=== PATIENT | male | born 1950 | race Caucasian/White ===

== ENCOUNTER → 2018-07-20 | Outpatient (CLI) | payer OTHER ==
--- NOTE | 2018-07-20 11:43 | 2DMMODE ---
[facility] [place] [address] 2 D/M-MODE ECHOCARDIOGRAM Name: FLORENCIAALVAROTRUMAN Room #: REG [facility]#: [id number] Admission: 07/20/18 Attend Phys: Francesco Zhu MD Discharge: Date of : 50 Date of Service: 07/20/18 1143 Report #: [id number] THIS REPORT FOR: //name// APPROVED REPORT Study performed: 07/20/2018 11:02:50 EXAM: Comprehensive 2D, Doppler, and color-flow Echocardiogram Patient Location: Out-Patient Status: routine BSA: 2.46 HR: 94 bpm BP: 138/88 mmHg Rhythm: Atrial Fibrillation Other Information Study Quality: Adequate Indications Atrial Fibrillation Hx: HTN, HLP 2D Dimensions RVDd: 42.78 mm IVSd: 11.43 (7-11mm) LVOT Diam: 23.35 (18-24mm) LVDd: 49.35 mm PWd: 10.72 (7-11mm) Ascending Ao: 42.33 (22-36mm) LVDs: 33.46 (25-40mm) Aortic Root: 38.43 mm Volumes Left Atrial Volume (Systole) Single Plane 4CH: 84.46 mL Single Plane 2CH: 101.37 mL LA ESV Index: 41.00 mL/m2 Aortic Valve AoV Peak Tristin.: 1.03 m/s AO Peak Gr.: 4.27 mmHg LVOT Max P.05 mmHg LVOT Max V: 0.71 m/s ALBERTO Vmax: 2.95 cm2 Mitral Valve MV Decel. Time: 159.92 ms MV E Max Tristin.: 0.80 m/s [facility] [address] [place] [address] 2 D/M-MODE ECHOCARDIOGRAM Name: TRUMAN ESQUIVEL Room #: REG [facility]#: [id number] Admission: 07/20/18 Attend Phys: Francesco Zhu MD Discharge: Date of : 50 Date of Service: 07/20/18 1143 Report #: [id number] Pulmonary Valve PV Peak Tristin.: 0.83 m/s PV Peak Gr.: 2.80 mmHg Tricuspid Valve TR Peak Tristin.: 2.35 m/s RAP Estimate: 5.00 mmHg TR Peak Gr.: 22.52 mmHg PA Pressure: 28.00 mmHg Left Ventricle The left ventricle is normal size. Mild basal septal hypertrophy is present. Left ventricular systolic function is borderline. LVEF is 50%. This study is not technically sufficient to allow evaluation of the LV diastolic function due to atrial fibrillation. Right Ventricle The right ventricle is normal size. The right ventricular systolic function is normal. Atria Left atrium is dilated. Right atrium is dilated. Aortic Valve The aortic valve is normal in structure. Mild aortic regurgitation. There is no aortic valvular stenosis. Mitral Valve The mitral valve is normal in structure. Trace mitral regurgitation. Tricuspid Valve The tricuspid valve is normal in structure. Mild tricuspid regurgitation. Estimated PAP is 28mmHg. Pulmonic Valve The pulmonary valve is normal in structure. Trace pulmonic regurgitation. Great Vessels Aortic root measures at the upper limits of normal. Ascending aorta is dilated at 4.2cm. IVC is normal in size and collapses >50% with inspiration. Pericardium There is no pericardial effusion. [facility] [place] [address] 2 D/M-MODE ECHOCARDIOGRAM Name: TRUMAN ESQUIVEL Room #: REG [facility].#: [id number] Admission: 07/20/18 Attend Phys: Francesco Zhu MD Discharge: Date of : 50 Date of Service: 07/20/18 1143 Report #: [id number] <Conclusion> The left ventricle is normal size. Left ventricular systolic function is borderline. The right ventricle is normal size. Left atrium is dilated. Right atrium is dilated. Mild aortic regurgitation. Trace mitral regurgitation. Mild tricuspid regurgitation. Estimated PAP is 28mmHg. <ELECTRONICALLY SIGNED> By: Francesco Zhu MD 07/20/18 1143 42 114 Francesco Zhu MD /INF
== END ==
LOC: NUC 08:45
DX: I08.2 Rheumatic disorders of both aortic and tricuspid valves (principal); I48.91 Unspecified atrial fibrillation

== ENCOUNTER → 2018-08-11 | Outpatient (CLI) | payer OTHER ==
[~2018-08-11] VITALS: Ht 188 cm; Wt 121.6 kg
[~2018-08-11] MED LIST: AVAPRO300 MG PO; CARDIZEM CD240 MG PO; CARVEDILOL12.5 MG PO; FLECAINIDE ACET50 M1 PO; HYDROCHLOROTHIA25 M2 PO; LIPITOR 20 MG T20 M1 PO; OMEPRAZOLE 20 M20 M1 PO; OXYBUTYNIN 5 MG5 M2 PO; PRADAXA150 MG PO; XANAX 0.5 MG0.5 MG PO; ZYLOPRIM300 MG PO
--- NOTE | ~2018-08-11 | P ---
[facility] [place] [address] PROCEDURE REPORT Name: TRUMAN ESQUIVEL Room #: REG Karine Gregory.#: [id number] Admission: 08/11/18 Attend Phys: Rafita Brice MD Discharge: Date of : 50 Report #: [id number] THIS REPORT FOR: //name// [facility] DATE OF SERVICE: 08/11/2018 PREOPERATIVE DIAGNOSIS: Atrial fibrillation. POSTOPERATIVE DIAGNOSIS: Atrial fibrillation. DESCRIPTION OF PROCEDURE: The patient underwent informed consent. The patient was then sedated by the Anesthesiology Service. The patient then underwent a 200 joule synchronized cardioversion with mandaen of sinus rhythm. There were no procedural complications. CONCLUSIONS: Successful DC cardioversion with mandaen of sinus rhythm. By: [id number] Rafita Brice MD /nt
--- NOTE | ~2018-08-11 | EKG ---
[address] [address] ELECTROCARDIOGRAM REPORT Name: TRUMAN ESQUIVEL [id number] Admission: 08/11/18 Attend Phys: Rafita Brice MD Discharge: Date of : 50 Report #: [id number] THIS REPORT FOR: //name// [facility] Test Date: 2018-08-11 Test Time: 13:14:45 Pat Name: TRUMAN ESQUIVEL Department: Room: Gender: M Balloon Pilot: Antolin JUDGE : 1950 Requested By: Rafita Brice Order Number: [id number] MD: Measurements Intervals [place] Rate: 74 P: 56 ID: 215 QRS: 80 QRSD: 113 T: 32 QT: 434 QTc: 482 Interpretive Statements Sinus rhythm Borderline prolonged ID interval Borderline intraventricular conduction delay Borderline prolonged QT interval No previous ECG available for comparison [email or web address] By: 1314 1314 Epiphany MD Blade /ANNIE
[2018-08-11 11:00] VITALS: BP 141/60
[2018-08-11 11:04] LABS: ABSOLUTE NEUTROPHILS 4.8 thou/uL (1.4-8.2); BASOPHILS 0.5 % (0.0-2.0); EOSINOPHILS 1.8 % (0.0-3.0); HEMATOCRIT 46.9 % (42.0-52.0); HEMOGLOBIN 16.2 gm/dL (14.0-18.0); LYMPHOCYTES 20.4 % (24.0-44.0); MCH 31.8 pg (26.0-34.0); MCHC 34.5 g/dL (28.0-37.0); MCV 92.1 fL (80.0-100.0); MONOCYTES 9.1 % (1.0-8.0); PLATELET COUNT 205 thou/uL (150-400); POLYS 68.2 % (36.0-66.0); RBC 5.09 mil/uL (4.50-6.00); RDW 14.6 % (10.5-14.5)
[2018-08-11 11:14] LABS: CALCIUM 9.2 mg/dL (8.5-10.1); CREATININE 0.9 mg/dL (0.7-1.3); POTASSIUM 3.5 mmol/L (3.5-5.1)
[2018-08-11 11:16] LABS: APTT 36.9 Seconds (24.5-32.8); INR 1.1; PROTIME 11.5 Seconds (9.3-11.4)
[2018-08-11 11:21] LABS: ALBUMIN 3.6 g/dL (3.4-5.0); TOTAL PROTEIN 7.3 g/dL (6.4-8.2)
== END | disposition home or self-care (01) ==
LOC: CATH 10:26
PROVIDERS: Internal Medicine Cardiovascular Disease
DX: I48.91 Unspecified atrial fibrillation (principal); K21.9 Gastro-esophageal reflux disease without esophagitis; E78.5 Hyperlipidemia, unspecified; I10 Essential (primary) hypertension; F17.290 Nicotine dependence, other tobacco product, uncomplicated; Z79.899 Other long term (current) drug therapy; Z91.018 Allergy to other foods; Z96.649 Presence of unspecified artificial hip joint; Z82.49 Family history of ischemic heart disease and other diseases of the circulatory system
CPT/HCPCS: 62110; 62900

== ENCOUNTER → 2019-07-19 | Outpatient (CLI) | payer OTHER | LOC: SJCVC 16:43 | DX: I48.91 Unspecified atrial fibrillation (principal); I10 Essential (primary) hypertension; E78.2 Mixed hyperlipidemia; K21.9 Gastro-esophageal reflux disease without esophagitis; M19.90 Unspecified osteoarthritis, unspecified site; Z79.899 Other long term (current) drug therapy ==

== ENCOUNTER → 2019-09-13 | Outpatient (CLI) | payer OTHER | LOC: SJCVCIMAG 08-16 10:14 | DX: I08.2 Rheumatic disorders of both aortic and tricuspid valves (principal); I11.9 Hypertensive heart disease without heart failure; R00.1 Bradycardia, unspecified; E78.5 Hyperlipidemia, unspecified; G47.33 Obstructive sleep apnea (adult) (pediatric); I48.0 Paroxysmal atrial fibrillation; E78.00 Pure hypercholesterolemia, unspecified; R60.9 Edema, unspecified; Z72.89 Other problems related to lifestyle; F12.90 Cannabis use, unspecified, uncomplicated; K21.9 Gastro-esophageal reflux disease without esophagitis; R60.0 Localized edema; M19.90 Unspecified osteoarthritis, unspecified site ==

== ENCOUNTER → 2020-01-11 | Outpatient (CLI) | payer OTHER | LOC: ULTRA 09:03 | PROVIDERS: ATTEND Family Medicine | DX: K76.0 Fatty (change of) liver, not elsewhere classified (principal); R79.89 Other specified abnormal findings of blood chemistry ==

== ENCOUNTER → 2020-04-25 | Outpatient (CLI) | payer OTHER | LOC: ULTRA 10:08 | PROVIDERS: ATTEND Family Medicine | DX: K76.0 Fatty (change of) liver, not elsewhere classified (principal) ==

== ENCOUNTER → 2020-08-01 | Outpatient (CLI) | payer OTHER | LOC: SJCVC 14:03 | PROVIDERS: ATTEND Internal Medicine Cardiovascular Disease | DX: I48.0 Paroxysmal atrial fibrillation (principal); R94.31 Abnormal electrocardiogram [ECG] [EKG]; E78.5 Hyperlipidemia, unspecified; I10 Essential (primary) hypertension; G47.33 Obstructive sleep apnea (adult) (pediatric); E78.2 Mixed hyperlipidemia; Z68.33 Body mass index [BMI] 33.0-33.9, adult; K21.9 Gastro-esophageal reflux disease without esophagitis; Z98.890 Other specified postprocedural states; Z79.899 Other long term (current) drug therapy; Z82.49 Family history of ischemic heart disease and other diseases of the circulatory system ==

== ENCOUNTER → 2020-11-20 | Outpatient (CLI) | payer OTHER | LOC: SJCVC 16:46 | PROVIDERS: ATTEND Internal Medicine Cardiovascular Disease | DX: I48.0 Paroxysmal atrial fibrillation (principal); I10 Essential (primary) hypertension; E78.00 Pure hypercholesterolemia, unspecified; R60.9 Edema, unspecified; K21.9 Gastro-esophageal reflux disease without esophagitis; M19.90 Unspecified osteoarthritis, unspecified site; E78.2 Mixed hyperlipidemia; F12.90 Cannabis use, unspecified, uncomplicated; Z72.89 Other problems related to lifestyle; Z79.899 Other long term (current) drug therapy ==